=== PATIENT | male | born 1970 | race Caucasian/White ===

== ENCOUNTER 2017-02-10 08:37 | Day surgery (SDC) | payer MEDICARE, MEDICAID ==
[~2017-02-10 08:37] MED LIST: ACETAMINOPHEN325 MG PEG; ACIDOPHILU6 PEG; ALENDRONATE35 MG PEG; ANTI-DIARRHE2 M1 PEG; GERI-LANTA PEG; HYDROCO/APAP1 TA9 PEG; IPRATROPIUM BROMIDE IN; KEPPRA750 M2 PEG; LORATADINE10 M1 PEG; LORAZEPAM2 MG/M1 SL; MIRALAX3350 NF PEG; MUCUS RELIEF400 MG PEG; OMEPRAZOLE20 M2 PEG; ONE DAILY MULTI1 TAB PEG; OS-CAL 500500 M1 PEG; PERIOGARD0.12 % MT; PHENOBARB64.8 MG PEG; PROMETHEGAN25 MG RE; PROVENTIL0.083 % IN; RANITIDINE H15 MG/ML PO; ROBITUSSIN100 MG/5 M PEG; ROBITUSSIN200 MG/10 PEG; SINGULAIR10 MG PEG; TOPAMAX100 M1 PEG; VIMPAT150 MG PEG; ZONEGRAN100 M1 PO; ZONISAMIDE50 MG PEG
[2017-02-10 11:23] VITALS: BP 105/63
== END 2017-02-10 11:25 ==
LOC: ENDO 08:37 → ORM 09:00 → ENDO 09:45
PROVIDERS: ATTEND Internal Medicine Gastroenterology
PROC: 0DBE8ZX Excision of Large Intestine, Via Natural or Artificial Opening Endoscopic, Diagnostic (ICD-10-PCS; principal; 2017-02-10)
DX: R19.7 Diarrhea, unspecified (principal); R63.4 Abnormal weight loss; K64.4 Residual hemorrhoidal skin tags; Q43.8 Other specified congenital malformations of intestine; R13.10 Dysphagia, unspecified; M35.3 Polymyalgia rheumatica; G40.909 Epilepsy, unspecified, not intractable, without status epilepticus; M41.9 Scoliosis, unspecified; Z86.010 Personal history of colon polyps; Z93.1 Gastrostomy status